=== PATIENT | male | born 1965 | race Caucasian/White ===

== ENCOUNTER 2017-07-30 15:50 | Inpatient (IN) | payer BC ==
[~2017-07-30] VITALS: Ht 175.3 cm; Wt 88.0 kg
[~2017-07-30 15:50] MED LIST: PEPCID COMPLETE1 CTB PO
[2017-08-11] VITALS (12 sets, daily range): BP systolic 114–138; BP diastolic 68–94; PULSE 64–783; TEMP 97.1–99.9
[2017-08-11 07:28] LABS: BASO # 0.1 (0.0-0.2); BASO % 0.5 % (0.0-2.0); EOS # 0.2 (0.0-0.7); EOS % 1.6 % (0-4.0); GRAN # 8.1 (1.4-6.5); HEMATOCRIT 46.1 % (42.0-52.0); LYMPH # 2.3 (1.2-3.4); LYMPH % 20.3 % (20.0-51.0); MEAN CELL VOLUME 87 fl (80.0-100.0); MEAN CORPUSCULAR HEMOGLOBIN 30 pg (27.0-31.0); MEAN CORPUSCULAR HGB CONC 35 g/dl (33.0-37.0); MEAN PLATELET VOLUME 9.9 fl (7.4-10.4); MONO # 0.7 (0.1-0.6); MONO % 6.2 % (1.7-9.3); PLATELET COUNT 273 K/mm3 (130-400); RED BLOOD COUNT 5.31 M/mm3 (4.20-5.60); REDCELL DISTRIBUTION WIDTH-CV 12.9 % (11.5-14.5)
[2017-08-11 07:35] LABS: BILIRUBIN,TOTAL 0.7 mg/dL (0.0-1.0); CALCIUM 9.5 mg/dL (8.4-10.2); CREATININE, serum 0.67 mg/dL (0.66-1.25); POTASSIUM 3.6 mmol/L (3.4-5.0)
[2017-08-11] MEDS ORDERED: SEPTRA DS 8001 TAB PO (08:01)
[2017-08-11] MEDS ORDERED: NORCO 325 MG-51 TAB PO (08:02)
[2017-08-11] MEDS ORDERED: FLOMAX 0.40.4 MG/CAP PO (08:02)
[2017-08-11] MEDS ORDERED: PRILOSEC 20MG20 MG PO (08:03)
[2017-08-12 00:01] VITALS: BP 140/86; PULSE 74; TEMP 98.6
[2017-08-12 04:10] VITALS: BP 137/80; PULSE 65; TEMP 98.6
[2017-08-12 06:32] LABS: HEMATOCRIT 40.2 % (42.0-52.0)
[2017-08-12 06:38] LABS: HEMOGLOBIN 13.6 g/dl (13.5-18.0)
[2017-08-12 06:56] LABS: CALCIUM 8.9 mg/dL (8.4-10.2); CREATININE, serum 0.78 mg/dL (0.66-1.25); MAGNESIUM 1.9 mg/dL (1.6-2.3); PHOSPHOROUS 4.5 mg/dL (2.5-4.5)
[2017-08-12 07:27] VITALS: BP 113/69; PULSE 63; TEMP 99
[2017-08-12 11:26] VITALS: BP 119/67; PULSE 69; TEMP 98.8
[2017-08-12 15:27] VITALS: BP 126/70; PULSE 73; TEMP 98.7
[2017-08-12 20:40] VITALS: BP 123/69; PULSE 78; TEMP 98.5
[2017-08-13 00:09] VITALS: BP 120/75; PULSE 78; TEMP 100.6; TEMP 99.6
[2017-08-13 04:16] VITALS: BP 116/73; PULSE 67; TEMP 98.4
[2017-08-13 07:22] VITALS: BP 120/74; PULSE 64; TEMP 98.8
[2017-08-13 11:03] VITALS: BP 116/76; PULSE 68; TEMP 98.8
[2017-08-13 15:08] VITALS: BP 119/68; PULSE 68; TEMP 98.1
[2017-08-13 20:00] VITALS: BP 123/82; PULSE 66; TEMP 98.3
[2017-08-14 00:18] VITALS: BP 121/73; PULSE 64; TEMP 98.6
[2017-08-14 04:00] VITALS: BP 113/74; PULSE 56; TEMP 99.4
[2017-08-14 10:35] VITALS: BP 140/76; PULSE 67; TEMP 98.6
[2017-08-14 12:25] VITALS: BP 115/74; PULSE 61; TEMP 98.1
[2017-08-14 15:42] VITALS: BP 116/74; PULSE 55; TEMP 98.4
== END 2017-08-14 19:10 | disposition home or self-care (01) | DRG 330 ==
LOC: INPTSU 08-11 06:41 → SURG 08-11 06:41
PROVIDERS: Surgery; Urology
PROC: BT141ZZ Fluoroscopy of Kidneys, Ureters and Bladder using Low Osmolar Contrast (ICD-10-PCS; 2017-08-11)
PROC: 0DTN4ZZ Resection of Sigmoid Colon, Percutaneous Endoscopic Approach (ICD-10-PCS; principal; 2017-08-11 08:00)
PROC: 8E0W4CZ Robotic Assisted Procedure of Trunk Region, Percutaneous Endoscopic Approach (ICD-10-PCS; 2017-08-11 08:00)
DX: K57.20 Diverticulitis of large intestine with perforation and abscess without bleeding (principal); K56.690 Other partial intestinal obstruction; E44.0 Moderate protein-calorie malnutrition; N21.0 Calculus in bladder; N40.1 Benign prostatic hyperplasia with lower urinary tract symptoms; F17.210 Nicotine dependence, cigarettes, uncomplicated
CPT/HCPCS: A4314; A9284; G0103; J0690; J0696; J1100; J1650; J1885; J2270; J2405; J2550; J2704; J2710; J7120